=== PATIENT | female | born 1965 | race Native Hawaiian/Other Pacific Islander ===

== ENCOUNTER 2024-05-02 20:15 | Emergency (ER) | payer MEDICARE, OTHER ==
[~2024-05-02] VITALS: Ht 167.6 cm; Wt 71.0 kg
[~2024-05-02 20:15] MED LIST: AMLO-258 PO; ASCO500 PO; ASPI-556 PO; B CO1CAP4 PO; CARV6 PO; CHOL100018 PO; DSS100 PO; GLIP5TAB16 PO; LOSA-382 PO; LOVA20TA73 PO; LUBI8CAP PO; PHOSLOC PO; [UNRECOGNIZED DRUG - CODE] PO
[2024-05-02 21:01] VITALS: TEMP 97.8
[2024-05-02] MEDS ORDERED: SEVE800T38 PO (21:14)
[2024-05-02] MEDS ORDERED: FOLI-130 PO (21:14)
[2024-05-02] MEDS ORDERED: QUET25TA36 PO (21:14)
[2024-05-02 22:12] LABS: BASOPHILS % (AUTO) 1.2 % (0.0-2.0); EOSINOPHILS % (AUTO) 5.1 % (1.0-6.0); HEMATOCRIT 36.6 % (36-46); HEMOGLOBIN 11.8 g/dL (12.0-16.0); LYMPHOCYTES # (AUTO) 0.7 K/uL (1.0-4.8); LYMPHOCYTES % (AUTO) 18.4 % (22.0-44.0); MEAN CORPUSCULAR HEMOGLOBIN 29.8 pg (26.0-34.0); MEAN CORPUSCULAR HGB CONC 32.2 G/dL (31.0-37.0); MEAN CORPUSCULAR VOLUME 93 fL (80-100); MONOCYTES # (AUTO) 0.5 K/uL (0.1-1.0); MONOCYTES % (AUTO) 11.9 % (2.0-9.0); NEUTROPHILS # (AUTO) 2.5 K/uL (1.8-7.7); NEUTROPHILS % (AUTO) 63.4 % (40.0-70.0); PLATELET COUNT (AUTO) 145 K/uL (150-450); RED BLOOD CELL COUNT(AUTO) 3.95 MIL/uL (4.00-5.20); RED CELL DISTRIBUTION WIDTH 15.9 % (11.5-14.5); WHITE BLOOD COUNT (AUTO) 3.9 K/uL (4.5-11.0)
[2024-05-02 22:24] LABS: ANION GAP 15 mmol/L (8-16); CALCIUM, TOTAL 11.5 mg/dL (8.8-10.5); CARBON DIOXIDE 20 mmol/L (22-29); CHLORIDE 103 mmol/L (98-107); CREATININE 8.59 mg/dL (0.60-1.30); GLOMERULAR FILTR. RATE CALC 5 mL/min (>60); GLUCOSE,RANDOM 153 mg/dL (70-110); SODIUM SERUM 138 mmol/L (136-145); UREA NITROGEN, BLOOD 23 mg/dL (7-18)
[2024-05-02 22:26] LABS: ALCOHOL, BLOOD (SERUM) < 3 mg/dL (0-10)
[2024-05-03] MEDS: LORazepam 1 MG TABLET PO ONE (02:11)
[2024-05-03] MEDS: DiphenhydrAMINE HCL 25 MG CAPSULE PO ONE (02:11)
[2024-05-03] MEDS: OLANZapine 5 MG TABLET PO ONE (02:11)
[2024-05-03 03:19] LABS: COVID AG,FIA SOURCE NASAL SWAB
[2024-05-03 03:46] LABS: SARS-COV2 (COVID) ANTIGEN,FIA Negative (Negative)
[2024-05-03 04:00] VITALS: BP 126/78; PULSE 78; RESP 16; O2SAT 96
== END 2024-05-03 04:30 | disposition home or self-care (01) ==
LOC: EMS 20:15
DX: R45.1 Restlessness and agitation (principal); G47.00 Insomnia, unspecified; Z88.8 Allergy status to other drugs, medicaments and biological substances; Z20.822 Contact with and (suspected) exposure to COVID-19
CPT/HCPCS: 99284; 87426; 80048; 85025; 36415; G0480

== ENCOUNTER 2024-05-07 14:17 | Inpatient (IN) | payer OTHER ==
[~2024-05-07] VITALS: Ht 165.1 cm; Wt 65.5 kg
[~2024-05-07 14:17] MED LIST changes: +FOLI-130 PO; +QUET25TA36 PO; +SEVE800T38 PO
[2024-05-07 16:42] LABS: BASOPHILS % (AUTO) 0.5 % (0.0-2.0); EOSINOPHILS % (AUTO) 1.1 % (1.0-6.0); HEMATOCRIT 38.7 % (36-46); HEMOGLOBIN 12.7 g/dL (12.0-16.0); LYMPHOCYTES # (AUTO) 0.4 K/uL (1.0-4.8); LYMPHOCYTES % (AUTO) 6.5 % (22.0-44.0); MEAN CORPUSCULAR HEMOGLOBIN 29.9 pg (26.0-34.0); MEAN CORPUSCULAR HGB CONC 32.8 G/dL (31.0-37.0); MEAN CORPUSCULAR VOLUME 91 fL (80-100); MONOCYTES # (AUTO) 0.5 K/uL (0.1-1.0); MONOCYTES % (AUTO) 8.3 % (2.0-9.0); NEUTROPHILS # (AUTO) 5.3 K/uL (1.8-7.7); NEUTROPHILS % (AUTO) 83.6 % (40.0-70.0); PLATELET COUNT (AUTO) 127 K/uL (150-450); RED BLOOD CELL COUNT(AUTO) 4.25 MIL/uL (4.00-5.20); RED CELL DISTRIBUTION WIDTH 15.6 % (11.5-14.5); WHITE BLOOD COUNT (AUTO) 6.3 K/uL (4.5-11.0)
[2024-05-07 16:50] LABS: CALCIUM, TOTAL 10.1 mg/dL (8.8-10.5); CREATININE 9.06 mg/dL (0.60-1.30); POTASSIUM 3.1 mmol/L (3.5-5.1)
[2024-05-07 16:56] LABS: ALBUMIN 3.3 g/dL (3.4-5.0); BILIRUBIN,DIRECT 0.3 mg/dL (0.00-0.20); TOTAL PROTEIN, SERUM 7.4 g/dL (6.4-8.2)
[2024-05-07] MEDS ORDERED: SODIUM CHLORIDE 0.9% 100 ML ONE (17:57)
[2024-05-07] MEDS ORDERED: IOHEXOL 350 MG/ML 100 ML VIAL ONE (17:57)
[2024-05-07] MEDS: LORazepam 2 MG/ML VIAL IM ONE (21:59)
[2024-05-07] MEDS: HALOPERIDOL LACTATE 5 MG/ML VIAL IM ONE (22:00)
[2024-05-07] MEDS: PIPERACILLIN/TAZO 3.375 GM/D5W 50 ML IV ONE (22:07)
[2024-05-07] MEDS ORDERED: INSULIN LISPRO 100 UNITS/ML SQ PRN (22:30)
[2024-05-07] MEDS ORDERED: ACETAMINOPHEN 325 MG TABLET PO PRN (22:30)
[2024-05-07] MEDS: ONDANSETRON HCL 4 MG/2 ML VIAL IVP PRN (22:46)
[2024-05-07] MEDS: HYDROmorphone HCL 2 MG/ML SYRINGE IVP PRN (22:46)
[2024-05-07] MEDS: HEPARIN SODIUM,PORCINE 5,000 UNITS/ML VIAL SQ SCH (23:18)
[2024-05-07] MEDS: SODIUM CHLORIDE 0.9% 250 ML IV ONE (23:18)
[2024-05-07 23:57] LABS: LACTIC ACID 1.4 mmol/L (0.4-2.0)
[2024-05-08] VITALS (13 sets, daily range): BP systolic 104–143; BP diastolic 47–87; PULSE 61–93; RESP 16–18; TEMP 97–97.9; O2SAT 96–99
[2024-05-08] MEDS: BISACODYL 10 MG RECTAL RECTAL SUPPOSITORY PR ONE (00:38)
[2024-05-08] MEDS: POTASSIUM CHLORIDE 20 MEQ ER TABLET PO ONE ×2 (02:17→11:17)
[2024-05-08] MEDS ORDERED: PIPERACILLIN SODIUM/TAZOBACTAM 0.75 GM in DEXTROSE 5%-WATER 50 ML IV PRN (02:45)
[2024-05-08] MEDS: PIPERACILLIN SODIUM/TAZOBACTAM 2.25 GM in DEXTROSE 5%-WATER 50 ML IV SCH (05:49)
[2024-05-08 06:25] LABS: GLUCOMETER DEV NAME(LOC) 6S.2; GLUCOSE,POINT OF CARE 73 MG/DL (70-110)
[2024-05-08 07:38] LABS: BASOPHILS % (AUTO) 0.6 % (0.0-2.0); EOSINOPHILS % (AUTO) 3.5 % (1.0-6.0); HEMATOCRIT 37.3 % (36-46); HEMOGLOBIN 12.4 g/dL (12.0-16.0); LYMPHOCYTES # (AUTO) 0.6 K/uL (1.0-4.8); LYMPHOCYTES % (AUTO) 11.4 % (22.0-44.0); MEAN CORPUSCULAR HEMOGLOBIN 30.2 pg (26.0-34.0); MEAN CORPUSCULAR HGB CONC 33.1 G/dL (31.0-37.0); MEAN CORPUSCULAR VOLUME 91 fL (80-100); MONOCYTES # (AUTO) 0.7 K/uL (0.1-1.0); MONOCYTES % (AUTO) 12.5 % (2.0-9.0); NEUTROPHILS # (AUTO) 3.9 K/uL (1.8-7.7); PLATELET COUNT (AUTO) 105 K/uL (150-450); RED CELL DISTRIBUTION WIDTH 16.3 % (11.5-14.5); WHITE BLOOD COUNT (AUTO) 5.4 K/uL (4.5-11.0)
[2024-05-08 08:10] LABS: CALCIUM, TOTAL 9.4 mg/dL (8.8-10.5); CREATININE 9.75 mg/dL (0.60-1.30); POTASSIUM 3.2 mmol/L (3.5-5.1)
[2024-05-08] MEDS: ASPIRIN 81 MG DR TABLET PO SCH (09:36)
[2024-05-08] MEDS: AmLODIPine BESYLATE 10 MG TABLET PO SCH (09:36)
[2024-05-08] MEDS: DOCUSATE SODIUM 100 MG CAPSULE PO SCH (09:36)
[2024-05-08] MEDS: CALCIUM ACETATE 667 MG CAPSULE PO SCH (09:36)
[2024-05-08] MEDS: SEVELAMER CARBONATE 800 MG TABLET PO SCH (09:36)
[2024-05-08] MEDS: CARVEDILOL 6.25 MG TABLET PO SCH (09:36)
[2024-05-08] MEDS: LOSARTAN POTASSIUM 50 MG TABLET PO SCH (09:36)
[2024-05-08] MEDS: LUBIPROSTONE 8 MCG CAPSULE PO SCH (09:37)
[2024-05-08] MEDS: CHOLECALCIFEROL (VIT D3) 1,000 UNITS [25 MCG] TABLET PO SCH (09:37)
[2024-05-08] MEDS: FOLIC ACID 1 MG TABLET PO SCH (09:37)
[2024-05-08] MEDS: HydrALAZINE HCL 10 MG TABLET PO SCH (09:37)
[2024-05-08] MEDS: LOVASTATIN 20 MG TABLET PO SCH (09:49)
[2024-05-08 12:41] LABS: GLUCOMETER DEV NAME(LOC) 6S.2; GLUCOSE,POINT OF CARE 77 MG/DL (70-110)
[2024-05-08] MEDS ORDERED: SODIUM CHLORIDE 0.9% 1,000 ML ONE (13:22)
[2024-05-08] MEDS ORDERED: HEPARIN SODIUM,PORCINE 1,000 UNITS/ML VIAL IVP ONE (17:44)
[2024-05-08] MEDS ORDERED: CHOL25TA4 PO (17:52)
[2024-05-08] MEDS ORDERED: ASPI-1444 PO (17:52)
[2024-05-08] MEDS ORDERED: DOCU-385 PO (17:52)
[2024-05-08] MEDS ORDERED: FOLI0.8T54 PO (17:52)
[2024-05-08] MEDS ORDERED: HEPARIN SODIUM,PORCINE 1,000 UNITS/ML VIAL IVCATH ONE ×2 (18:00)
[2024-05-08 20:25] LABS: GLUCOMETER DEV NAME(LOC) 6S.2; GLUCOSE,POINT OF CARE 68 MG/DL (70-110)
[2024-05-08] MEDS: ASCORBIC ACID 500 MG TABLET PO SCH (20:38)
[2024-05-08] MEDS: VITAMIN B COMPLEX/FOLIC ACID 1 TABLET PO SCH (20:38)
[2024-05-08] MEDS: QUEtiapine FUMARATE 25 MG TABLET PO SCH (21:54)
[2024-05-08 22:51] LABS: GLUCOMETER DEV NAME(LOC) 6S.2; GLUCOSE,POINT OF CARE 106 MG/DL (70-110)
[2024-05-09 06:30] LABS: GLUCOMETER DEV NAME(LOC) 6S.2; GLUCOSE,POINT OF CARE 90 MG/DL (70-110)
[2024-05-09 06:45] VITALS: BP 124/66; PULSE 69; RESP 18; TEMP 98.4; O2SAT 96
[2024-05-09] MEDS: -POST HEMODIALYSIS NOTE- MISC SCH (09:00)
[2024-05-09] MEDS: POLYETHYLENE GLYCOL 3350 17 GM PACKET PO SCH (09:03)
[2024-05-09] MEDS: SENNOSIDES 8.6 MG TABLET PO ONE (13:10)
[2024-05-09 17:31] VITALS: BP 118/73; PULSE 64; RESP 19; TEMP 98; O2SAT 100
[2024-05-09] MEDS ORDERED: DEXTROSE 50%-WATER 25 GM/50 ML SYRINGE IVP PRN (18:00)
[2024-05-09] MEDS: CLINDAMYCIN 300 MG/D5% WATER 50 ML IV SCH (18:26)
[2024-05-09 21:02] VITALS: BP 120/60; PULSE 66; RESP 18; TEMP 97.7; O2SAT 100
[2024-05-09 23:30] LABS: GLUCOMETER DEV NAME(LOC) 6S.2; GLUCOSE,POINT OF CARE 116 MG/DL (70-110)
[2024-05-09 23:30] LABS: GLUCOMETER DEV NAME(LOC) 6S.2; GLUCOSE,POINT OF CARE 98 MG/DL (70-110)
[2024-05-10] VITALS (11 sets, daily range): BP systolic 105–170; BP diastolic 60–79; PULSE 60–78; RESP 16–18; TEMP 97–97.8; O2SAT 98–99
[2024-05-10 07:32] LABS: BASOPHILS % (AUTO) 0.9 % (0.0-2.0); EOSINOPHILS % (AUTO) 4.8 % (1.0-6.0); HEMATOCRIT 34.2 % (36-46); HEMOGLOBIN 11.4 g/dL (12.0-16.0); LYMPHOCYTES # (AUTO) 0.7 K/uL (1.0-4.8); MEAN CORPUSCULAR HGB CONC 33.3 G/dL (31.0-37.0); MEAN CORPUSCULAR VOLUME 90 fL (80-100); MONOCYTES # (AUTO) 0.6 K/uL (0.1-1.0); MONOCYTES % (AUTO) 12.7 % (2.0-9.0); NEUTROPHILS % (AUTO) 66.6 % (40.0-70.0); PLATELET COUNT (AUTO) 112 K/uL (150-450); RED BLOOD CELL COUNT(AUTO) 3.79 MIL/uL (4.00-5.20); RED CELL DISTRIBUTION WIDTH 15.3 % (11.5-14.5); WHITE BLOOD COUNT (AUTO) 4.5 K/uL (4.5-11.0)
[2024-05-10 07:48] LABS: CALCIUM, TOTAL 10.8 mg/dL (8.8-10.5); CREATININE 7.36 mg/dL (0.60-1.30); MAGNESIUM 2.3 mg/dL (1.80-2.40)
[2024-05-10] MEDS ORDERED: SODIUM CHLORIDE 0.9% 1,000 ML ONE (11:27)
[2024-05-10 12:10] LABS: GLUCOMETER DEV NAME(LOC) 6S.2; GLUCOSE,POINT OF CARE 83 MG/DL (70-110)
[2024-05-10 12:10] LABS: GLUCOMETER DEV NAME(LOC) 6S.2; GLUCOSE,POINT OF CARE 84 MG/DL (70-110)
[2024-05-10] MEDS: DEXTROSE 50%-WATER 25 GM/50 ML SYRINGE IVP PRN (12:43)
[2024-05-10] MEDS ORDERED: CLIN300C58 PO (13:29)
[2024-05-10 20:00] LABS: GLUCOMETER DEV NAME(LOC) 6S.2; GLUCOSE,POINT OF CARE 110 MG/DL (70-110)
== END 2024-05-10 19:50 | disposition home or self-care (01) | DRG 391 ==
LOC: EMS 14:17 → EDH 22:56 → 6S 05-08 00:04
PROVIDERS: ADMIT Internal Medicine; ATTEND Internal Medicine
PROC: 5A1D70Z Performance of Urinary Filtration, Intermittent, Less than 6 Hours Per Day (ICD-10-PCS; principal; 2024-05-08)
PROC: 5A1D70Z Performance of Urinary Filtration, Intermittent, Less than 6 Hours Per Day (ICD-10-PCS; 2024-05-10)
DX: K52.89 Other specified noninfective gastroenteritis and colitis (principal); G93.41 Metabolic encephalopathy; N18.6 End stage renal disease; K51.30 Ulcerative (chronic) rectosigmoiditis without complications; I12.0 Hypertensive chronic kidney disease with stage 5 chronic kidney disease or end stage renal disease; K86.1 Other chronic pancreatitis; D68.9 Coagulation defect, unspecified; E11.22 Type 2 diabetes mellitus with diabetic chronic kidney disease; K56.41 Fecal impaction; E87.6 Hypokalemia; R32 Unspecified urinary incontinence; E11.649 Type 2 diabetes mellitus with hypoglycemia without coma; F03.90 Unspecified dementia, unspecified severity, without behavioral disturbance, psychotic disturbance, mood disturbance, and anxiety; D69.6 Thrombocytopenia, unspecified; I95.9 Hypotension, unspecified; F17.200 Nicotine dependence, unspecified, uncomplicated; K80.20 Calculus of gallbladder without cholecystitis without obstruction; Z79.82 Long term (current) use of aspirin; Z79.84 Long term (current) use of oral hypoglycemic drugs; Z79.899 Other long term (current) drug therapy; Z99.2 Dependence on renal dialysis
CPT/HCPCS: 71045; 74177; 76705; 80048; 80076; 82962; 83605; 83690; 83735; 85025; 87081; 87340; 90935; 93005; 99291; G0378; J1170; J1630; J1644; J2060; J2405; J2543; J3490; J7030; J7050; J7060; 36415-L1; 36415-TC

== ENCOUNTER 2024-05-18 16:26 | Emergency (ER) | payer OTHER ==
[~2024-05-18] VITALS: Ht 157.5 cm; Wt 56.0 kg
[~2024-05-18 16:26] MED LIST changes: +ASPI-1444 PO; -ASPI-556 PO; -B CO1CAP4 PO; -CHOL100018 PO; +CHOL25TA4 PO; +CLIN300C58 PO; +DOCU-385 PO; -DSS100 PO; +FOLI0.8T54 PO
[2024-05-18 17:20] LABS: BASOPHILS % (AUTO) 1.2 % (0.0-2.0); EOSINOPHILS % (AUTO) 7.3 % (1.0-6.0); HEMATOCRIT 33.8 % (36-46); HEMOGLOBIN 10.8 g/dL (12.0-16.0); LYMPHOCYTES % (AUTO) 25.7 % (22.0-44.0); MEAN CORPUSCULAR HEMOGLOBIN 29.6 pg (26.0-34.0); MEAN CORPUSCULAR HGB CONC 31.9 G/dL (31.0-37.0); MEAN CORPUSCULAR VOLUME 93 fL (80-100); MONOCYTES # (AUTO) 0.4 K/uL (0.1-1.0); MONOCYTES % (AUTO) 10.9 % (2.0-9.0); NEUTROPHILS # (AUTO) 2.2 K/uL (1.8-7.7); NEUTROPHILS % (AUTO) 54.9 % (40.0-70.0); PLATELET COUNT (AUTO) 104 K/uL (150-450); RED BLOOD CELL COUNT(AUTO) 3.64 MIL/uL (4.00-5.20); RED CELL DISTRIBUTION WIDTH 16.4 % (11.5-14.5)
[2024-05-18 17:29] LABS: CREATININE 6.6 mg/dL (0.60-1.30); POTASSIUM 3.8 mmol/L (3.5-5.1)
[2024-05-18 17:35] LABS: ALBUMIN 2.8 g/dL (3.4-5.0); BILIRUBIN,TOTAL 0.5 mg/dL (0.1-1.0); TOTAL PROTEIN, SERUM 6.5 g/dL (6.4-8.2)
[2024-05-18 17:36] LABS: TROPONIN I-HIGH SENSITIVITY 9 ng/L (<51)
[2024-05-18] MEDS ORDERED: ONDA-104 PO (19:10)
[2024-05-18 19:23] VITALS: BP 119/65; PULSE 71; RESP 16; TEMP 97.3; O2SAT 100
== END 2024-05-18 22:17 | disposition home or self-care (01) ==
LOC: EMS 16:26
DX: R10.84 Generalized abdominal pain (principal); R11.0 Nausea; Z88.8 Allergy status to other drugs, medicaments and biological substances
CPT/HCPCS: 80053; 83690; 84484; 85025; 93005; 99284

== ENCOUNTER 2024-06-12 10:31 | Inpatient (IN) | payer OTHER ==
[~2024-06-12] VITALS: Ht 157.5 cm; Wt 67.9 kg
[~2024-06-12 10:31] MED LIST changes: +ONDA-104 PO
[2024-06-12 11:36] LABS: GLUCOMETER DEV NAME(LOC) ERT.6; GLUCOSE,POINT OF CARE 74 MG/DL (70-110)
[2024-06-12] MEDS ORDERED: CHOL500045 PO (11:39)
[2024-06-12] MEDS ORDERED: ATOR40TA71 PO (11:39)
[2024-06-12] MEDS ORDERED: AMLO2.5T29 PO (11:39)
[2024-06-12] MEDS ORDERED: QUET100T PO (11:39)
[2024-06-12] MEDS: SODIUM CHLORIDE 0.9% 250 ML IV ONE ×2 (11:56→12:58)
[2024-06-12 12:16] LABS: BASOPHILS % (AUTO) 1.2 % (0.0-2.0); EOSINOPHILS % (AUTO) 3.2 % (1.0-6.0); HEMATOCRIT 33.4 % (36-46); HEMOGLOBIN 10.7 g/dL (12.0-16.0); LYMPHOCYTES # (AUTO) 0.6 K/uL (1.0-4.8); LYMPHOCYTES % (AUTO) 14.3 % (22.0-44.0); MEAN CORPUSCULAR HEMOGLOBIN 30.2 pg (26.0-34.0); MEAN CORPUSCULAR HGB CONC 32.2 G/dL (31.0-37.0); MEAN CORPUSCULAR VOLUME 94 fL (80-100); MONOCYTES # (AUTO) 0.4 K/uL (0.1-1.0); NEUTROPHILS # (AUTO) 3.3 K/uL (1.8-7.7); NEUTROPHILS % (AUTO) 73.3 % (40.0-70.0); PLATELET COUNT (AUTO) 123 K/uL (150-450); RED BLOOD CELL COUNT(AUTO) 3.56 MIL/uL (4.00-5.20); RED CELL DISTRIBUTION WIDTH 17.1 % (11.5-14.5); WHITE BLOOD COUNT (AUTO) 4.5 K/uL (4.5-11.0)
[2024-06-12 12:24] LABS: ANION GAP 11 mmol/L (8-16); CALCIUM, TOTAL 8.9 mg/dL (8.8-10.5); CARBON DIOXIDE 22 mmol/L (22-29); CHLORIDE 103 mmol/L (98-107); CREATININE 4.89 mg/dL (0.60-1.30); GLOMERULAR FILTR. RATE CALC 9 mL/min (>60); GLUCOSE,RANDOM 87 mg/dL (70-110); POTASSIUM 3.6 mmol/L (3.5-5.1); SODIUM SERUM 136 mmol/L (136-145); UREA NITROGEN, BLOOD 19 mg/dL (7-18)
[2024-06-12] MEDS ORDERED: ACETAMINOPHEN 325 MG TABLET PO PRN (12:30)
[2024-06-12 12:32] LABS: TROPONIN I-HIGH SENSITIVITY 12 ng/L (<51)
[2024-06-12 12:33] LABS: LACTIC ACID 1.4 mmol/L (0.4-2.0)
[2024-06-12 12:35] LABS: B-TYPE NATRIURETIC PEPTIDE 89 pg/mL (0-100)
[2024-06-12] MEDS: LORazepam 2 MG/ML VIAL IVP ONE (13:46)
[2024-06-12] MEDS: LORazepam 2 MG/ML VIAL IM ONE (13:48)
[2024-06-12] MEDS: HALOPERIDOL LACTATE 5 MG/ML VIAL IM ONE (13:48)
[2024-06-12 16:00] VITALS: BP 130/69; PULSE 71; RESP 15; TEMP 97.6; O2SAT 100
[2024-06-12] MEDS: HEPARIN SODIUM,PORCINE 5,000 UNITS/ML VIAL SQ SCH (16:56)
[2024-06-12 17:50] VITALS: BP 132/70; PULSE 76; RESP 16; TEMP 98; O2SAT 98
[2024-06-12 20:05] LABS: GLUCOMETER DEV NAME(LOC) 5N.1D; GLUCOSE,POINT OF CARE 81 MG/DL (70-110)
[2024-06-12] MEDS: DOCUSATE SODIUM 100 MG CAPSULE PO SCH (21:00)
[2024-06-12 21:12] VITALS: BP 144/93; PULSE 99; RESP 17; TEMP 98.1; O2SAT 95
[2024-06-12] MEDS: DEXTROSE 50%-WATER 25 GM/50 ML SYRINGE IVP PRN (21:19)
[2024-06-13 00:44] VITALS: BP 125/82; PULSE 87; RESP 18; TEMP 97.8; O2SAT 100
[2024-06-13 05:49] VITALS: BP 140/80; PULSE 65; RESP 18; O2SAT 96
[2024-06-13 07:18] VITALS: BP 146/91; PULSE 69; RESP 18; TEMP 98; O2SAT 97
[2024-06-13] MEDS: ASPIRIN 81 MG CHEWABLE TABLET PO SCH (08:23)
[2024-06-13] MEDS: FAMOTIDINE 20 MG TABLET PO SCH (08:24)
[2024-06-13] MEDS: INSULIN LISPRO 100 UNITS/ML SQ PRN (11:45)
[2024-06-13 15:27] VITALS: BP 129/74; PULSE 75; RESP 18; TEMP 98; O2SAT 97
[2024-06-13] MEDS ORDERED: LORazepam 2 MG/ML VIAL ONE (16:10)
[2024-06-13] MEDS: LORazepam 2 MG/ML VIAL IVP PRN (16:27)
[2024-06-13 19:01] LABS: GLUCOMETER DEV NAME(LOC) 5S.1C; GLUCOSE,POINT OF CARE 141 MG/DL (70-110)
[2024-06-13 19:01] LABS: GLUCOMETER DEV NAME(LOC) 5S.1C; GLUCOSE,POINT OF CARE 80 MG/DL (70-110)
[2024-06-13 19:06] LABS: GLUCOMETER DEV NAME(LOC) 5N.1D; GLUCOSE,POINT OF CARE 117 MG/DL (70-110)
[2024-06-13 19:06] LABS: GLUCOMETER DEV NAME(LOC) 5N.1D; GLUCOSE,POINT OF CARE 68 MG/DL (70-110)
[2024-06-13 20:05] VITALS: BP 139/84; PULSE 82; RESP 18; TEMP 97.8; O2SAT 100
[2024-06-13 23:16] LABS: GLUCOMETER DEV NAME(LOC) 5S.1C; GLUCOSE,POINT OF CARE 142 MG/DL (70-110)
[2024-06-13 23:32] VITALS: BP 131/79; PULSE 81; RESP 17; TEMP 97.7; O2SAT 100
[2024-06-14] VITALS (13 sets, daily range): BP systolic 99–156; BP diastolic 48–77; PULSE 60–87; RESP 17–19; TEMP 97–98; O2SAT 92–100
[2024-06-14 06:30] LABS: GLUCOMETER DEV NAME(LOC) 5S.1C; GLUCOSE,POINT OF CARE 94 MG/DL (70-110)
[2024-06-14 22:26] LABS: GLUCOMETER DEV NAME(LOC) 5S.1C; GLUCOSE,POINT OF CARE 100 MG/DL (70-110)
[2024-06-14] MEDS ORDERED: SODIUM CHLORIDE 0.9% 2,000 ML ONE (23:03)
[2024-06-14] MEDS ORDERED: HEPARIN SODIUM,PORCINE 1,000 UNITS/ML VIAL IVCATH ONE ×2 (23:15)
[2024-06-15] VITALS: BP 97/54; PULSE 67; RESP 17; O2SAT 96
[2024-06-15 04:54] VITALS: BP 134/71; PULSE 99; RESP 19; TEMP 97.9; O2SAT 95
[2024-06-15 06:01] LABS: GLUCOMETER DEV NAME(LOC) 5S.1C; GLUCOSE,POINT OF CARE 104 MG/DL (70-110)
[2024-06-15 07:31] VITALS: BP 110/68; PULSE 84; RESP 18; TEMP 98; O2SAT 99
[2024-06-15 11:37] LABS: GLUCOMETER DEV NAME(LOC) 5N.2C; GLUCOSE,POINT OF CARE 116 MG/DL (70-110)
[2024-06-15] MEDS ORDERED: MIDODRINE HCL 5 MG TABLET PO PRN (12:45)
[2024-06-15] MEDS ORDERED: ONDANSETRON 4 MG TABLET PO PRN (12:45)
[2024-06-15 13:09] LABS: HEMATOCRIT 35.1 % (36-46); HEMOGLOBIN 11.5 g/dL (12.0-16.0); MEAN CORPUSCULAR HEMOGLOBIN 30.8 pg (26.0-34.0); MEAN CORPUSCULAR HGB CONC 32.9 G/dL (31.0-37.0); MEAN CORPUSCULAR VOLUME 94 fL (80-100); PLATELET COUNT (AUTO) 155 K/uL (150-450); RED BLOOD CELL COUNT(AUTO) 3.75 MIL/uL (4.00-5.20); RED CELL DISTRIBUTION WIDTH 17.9 % (11.5-14.5); WHITE BLOOD COUNT (AUTO) 3.1 K/uL (4.5-11.0)
[2024-06-15 13:29] LABS: BAND NEUTROPHILS % (MANUAL) 1 % (0-5); BASOPHILS % (MANUAL) 1 % (0-2); EOSINOPHILS % (MANUAL) 5 % (1-6); LYMPHOCYTES % (MANUAL) 27 % (22-44); MONOCYTES % (MANUAL) 8 % (2-9); SEGMENTED NEUTROPHILS % 58 % (40-70); TOTAL CELLS COUNTED 100
[2024-06-15 13:33] LABS: ALBUMIN 2.8 g/dL (3.4-5.0); BILIRUBIN,TOTAL 0.6 mg/dL (0.1-1.0); CALCIUM, TOTAL 9.2 mg/dL (8.8-10.5); CREATININE 5.37 mg/dL (0.60-1.30); POTASSIUM 3.5 mmol/L (3.5-5.1); TOTAL PROTEIN, SERUM 7.1 g/dL (6.4-8.2)
[2024-06-15] MEDS ORDERED: LINA5TAB PO (13:57)
[2024-06-15 17:36] LABS: GLUCOMETER DEV NAME(LOC) 5S.1C; GLUCOSE,POINT OF CARE 120 MG/DL (70-110)
[2024-06-15] MEDS ORDERED: LUBIPROSTONE 8 MCG CAPSULE PO SCH (18:00)
[2024-06-15] MEDS ORDERED: CALCIUM ACETATE 667 MG CAPSULE PO SCH (18:00)
[2024-06-15] MEDS ORDERED: SEVELAMER CARBONATE 800 MG TABLET PO SCH (18:00)
[2024-06-15] MEDS ORDERED: ATORVASTATIN CALCIUM 40 MG TABLET PO SCH (21:00)
[2024-06-15] MEDS ORDERED: DOCUSATE SODIUM 100 MG CAPSULE PO SCH (21:00)
[2024-06-15] MEDS ORDERED: QUEtiapine FUMARATE 100 MG TABLET PO SCH (21:00)
[2024-06-15] MEDS ORDERED: ASCORBIC ACID 500 MG TABLET PO SCH (21:00)
[2024-06-16] MEDS ORDERED: FOLIC ACID 1 MG TABLET PO SCH (09:00)
[2024-06-16] MEDS ORDERED: ASPIRIN 81 MG DR TABLET PO SCH (09:00)
[2024-06-16] MEDS ORDERED: QUEtiapine FUMARATE 25 MG TABLET PO SCH (09:00)
[2024-06-16] MEDS ORDERED: FOLIC ACID/VIT B COMPLEX AND C TABLET PO SCH (09:00)
== END 2024-06-15 14:40 | disposition home or self-care (01) | DRG 312 ==
LOC: EMS 10:31 → EDH 12:19 → 5N 16:11
PROVIDERS: ADMIT Internal Medicine; ATTEND Internal Medicine
PROC: GZ56ZZZ Individual Psychotherapy, Supportive (ICD-10-PCS; principal; 2024-06-14)
PROC: 5A1D70Z Performance of Urinary Filtration, Intermittent, Less than 6 Hours Per Day (ICD-10-PCS; 2024-06-14)
DX: I95.3 Hypotension of hemodialysis (principal); N18.6 End stage renal disease; G93.41 Metabolic encephalopathy; I12.0 Hypertensive chronic kidney disease with stage 5 chronic kidney disease or end stage renal disease; K86.1 Other chronic pancreatitis; F03.918 Unspecified dementia, unspecified severity, with other behavioral disturbance; E11.22 Type 2 diabetes mellitus with diabetic chronic kidney disease; D69.6 Thrombocytopenia, unspecified; D64.9 Anemia, unspecified; E87.8 Other disorders of electrolyte and fluid balance, not elsewhere classified; F91.9 Conduct disorder, unspecified; Z99.2 Dependence on renal dialysis; Z79.82 Long term (current) use of aspirin; Z79.84 Long term (current) use of oral hypoglycemic drugs; Z79.899 Other long term (current) drug therapy; Z88.8 Allergy status to other drugs, medicaments and biological substances
CPT/HCPCS: 71045; 80048; 80053; 82962; 83605; 83880; 84484; 85025; 87040; 87340; 90935; 93005; 97162; 97166; 97530; 97535; 99285; J1630; J1644; J2060; J7030; J7040; 36415-L1; 36415-TC

== ENCOUNTER 2024-10-24 04:46 | Inpatient (IN) | payer OTHER ==
[~2024-10-24] VITALS: Ht 154.9 cm; Wt 79.4 kg
[~2024-10-24 04:46] MED LIST changes: -AMLO-258 PO; +ATOR40TA71 PO; -CARV6 PO; -CHOL25TA4 PO; +CHOL500045 PO; -CLIN300C58 PO; -GLIP5TAB16 PO; +LINA5TAB PO; -LOSA-382 PO; -LOVA20TA73 PO; +QUET100T PO
[2024-10-24 05:40] LABS: COVID AG,FIA SOURCE NASAL SWAB
[2024-10-24 05:43] LABS: BASOPHILS % (AUTO) 1.6 % (0.0-2.0); EOSINOPHILS % (AUTO) 5.2 % (1.0-6.0); HEMATOCRIT 32.4 % (36-46); HEMOGLOBIN 10.6 g/dL (12.0-16.0); LYMPHOCYTES # (AUTO) 0.4 K/uL (1.0-4.8); MEAN CORPUSCULAR HEMOGLOBIN 31.2 pg (26.0-34.0); MEAN CORPUSCULAR HGB CONC 32.8 G/dL (31.0-37.0); MEAN CORPUSCULAR VOLUME 95 fL (80-100); MONOCYTES # (AUTO) 0.3 K/uL (0.1-1.0); MONOCYTES % (AUTO) 8.5 % (2.0-9.0); NEUTROPHILS # (AUTO) 2.7 K/uL (1.8-7.7); NEUTROPHILS % (AUTO) 73.7 % (40.0-70.0); PLATELET COUNT (AUTO) 141 K/uL (150-450); RED CELL DISTRIBUTION WIDTH 18.4 % (11.5-14.5); WHITE BLOOD COUNT (AUTO) 3.7 K/uL (4.5-11.0)
[2024-10-24 06:00] LABS: SARS-COV2 (COVID) ANTIGEN,FIA Negative (Negative)
[2024-10-24 06:13] LABS: ALCOHOL, BLOOD (SERUM) < 3 mg/dL (0-10); ANION GAP 11 mmol/L (8-16); CALCIUM, TOTAL 9.6 mg/dL (8.8-10.5); CARBON DIOXIDE 24 mmol/L (22-29); CHLORIDE 104 mmol/L (98-107); CREATININE 8.96 mg/dL (0.60-1.30); GLOMERULAR FILTR. RATE CALC 5 mL/min (>60); GLUCOSE,RANDOM 80 mg/dL (70-110); POTASSIUM 5.1 mmol/L (3.5-5.1); SODIUM SERUM 139 mmol/L (136-145); UREA NITROGEN, BLOOD 36 mg/dL (7-18)
[2024-10-24 11:00] VITALS: BP 166/43; PULSE 67; RESP 16; TEMP 97.6; O2SAT 100
[2024-10-24 19:33] VITALS: BP 164/75; PULSE 68; RESP 18; TEMP 97.7; O2SAT 100
[2024-10-25] VITALS (12 sets, daily range): BP systolic 115–168; BP diastolic 62–110; PULSE 67–101; RESP 18; TEMP 97.7–98; O2SAT 96–100
[2024-10-25] MEDS ORDERED: ONDANSETRON 4 MG TABLET PO PRN (07:00)
[2024-10-25] MEDS: FOLIC ACID/VIT B COMPLEX AND C TABLET PO SCH (08:33)
[2024-10-25] MEDS: LinaGLIPtin 5 MG TABLET PO SCH (08:34)
[2024-10-25] MEDS: CHOLECALCIFEROL (VIT D3) 5,000 [125 MCG] UNITS CAPSULE PO SCH (08:34)
[2024-10-25] MEDS: FOLIC ACID 1 MG TABLET PO SCH (08:34)
[2024-10-25] MEDS: ASPIRIN 81 MG DR TABLET PO SCH (08:34)
[2024-10-25] MEDS: DOCUSATE SODIUM 100 MG CAPSULE PO SCH (08:34)
[2024-10-25] MEDS: SEVELAMER CARBONATE 800 MG TABLET PO SCH (08:35)
[2024-10-25] MEDS: LUBIPROSTONE 8 MCG CAPSULE PO SCH (08:35)
[2024-10-25] MEDS: CALCIUM ACETATE 667 MG CAPSULE PO SCH (08:38)
[2024-10-25 08:41] LABS: GLUCOMETER DEV NAME(LOC) 6S.1D; GLUCOSE,POINT OF CARE 79 MG/DL (70-110)
[2024-10-25] MEDS ORDERED: SODIUM CHLORIDE 0.9% 1,000 ML ONE ×2 (08:59→09:00)
[2024-10-25] MEDS: HydrALAZINE HCL 10 MG TABLET PO SCH (09:00)
[2024-10-25] MEDS: QUEtiapine FUMARATE 100 MG TABLET PO SCH (13:42)
[2024-10-25] MEDS: HEPARIN SODIUM,PORCINE 1,000 UNITS/ML VIAL IVP PRN ×2 (13:48→13:49)
[2024-10-25] MEDS: QUEtiapine FUMARATE 25 MG TABLET PO SCH (13:59)
[2024-10-25] MEDS: ATORVASTATIN CALCIUM 40 MG TABLET PO SCH (21:00)
[2024-10-25] MEDS: ASCORBIC ACID 500 MG TABLET PO SCH (21:00)
[2024-10-26 03:14] VITALS: BP 131/62; PULSE 76; RESP 18; TEMP 98.5; O2SAT 99
[2024-10-26 07:56] LABS: GLUCOMETER DEV NAME(LOC) 6S.2; GLUCOSE,POINT OF CARE 84 MG/DL (70-110)
[2024-10-26 08:08] VITALS: BP 130/80; PULSE 70; RESP 18; TEMP 98.5; O2SAT 98
[2024-10-26 11:48] VITALS: BP 152/84; PULSE 72; RESP 18; TEMP 97.8; O2SAT 98
[2024-10-26 15:33] VITALS: BP 112/66; PULSE 76; RESP 18; TEMP 98.2; O2SAT 98
[2024-10-26 20:00] VITALS: BP 150/84; PULSE 76; RESP 18; TEMP 98; O2SAT 98
[2024-10-27] VITALS (13 sets, daily range): BP systolic 106–176; BP diastolic 59–92; PULSE 50–90; RESP 1–18; TEMP 97.2–98.4; O2SAT 97–100
[2024-10-27] MEDS ORDERED: SODIUM CHLORIDE 0.9% 2,000 ML ONE (08:55)
[2024-10-27] MEDS ORDERED: HEPARIN SODIUM,PORCINE 1,000 UNITS/ML VIAL IVP ONE (12:00)
[2024-10-27] MEDS: LORazepam 1 MG TABLET PO PRN (17:31)
[2024-10-27] MEDS ORDERED: LORA-192 PO (17:32)
== END 2024-10-27 21:12 | disposition home or self-care (01) | DRG 808 ==
LOC: EMS 04:47 → EDH 10:34 → 6S 11:06
PROVIDERS: ADMIT Hospitalist; ATTEND Hospitalist
PROC: 5A1D70Z Performance of Urinary Filtration, Intermittent, Less than 6 Hours Per Day (ICD-10-PCS; principal; 2024-10-25)
PROC: 5A1D70Z Performance of Urinary Filtration, Intermittent, Less than 6 Hours Per Day (ICD-10-PCS; 2024-10-27)
DX: D61.818 Other pancytopenia (principal); N18.6 End stage renal disease; I12.0 Hypertensive chronic kidney disease with stage 5 chronic kidney disease or end stage renal disease; E11.22 Type 2 diabetes mellitus with diabetic chronic kidney disease; Z20.822 Contact with and (suspected) exposure to COVID-19; F03.90 Unspecified dementia, unspecified severity, without behavioral disturbance, psychotic disturbance, mood disturbance, and anxiety; N25.0 Renal osteodystrophy; F20.9 Schizophrenia, unspecified; E78.5 Hyperlipidemia, unspecified; Z99.2 Dependence on renal dialysis; Z88.8 Allergy status to other drugs, medicaments and biological substances
CPT/HCPCS: 80048; 82962; 85025; 87081; 87340; 90935; 96374; 96375; 99285; G0480; J1644; J7030

== ENCOUNTER 2024-11-20 23:56 | Emergency (ER) | payer OTHER ==
[~2024-11-20 23:56] MED LIST changes: +LORA-192 PO
== END 2024-11-20 23:59 | disposition left against medical advice (07) ==
LOC: EMS 23:59 → 3EC 11-21 00:03 → UNDOADMIN 11-21 00:03
DX: F03.90 Unspecified dementia, unspecified severity, without behavioral disturbance, psychotic disturbance, mood disturbance, and anxiety (principal); R03.0 Elevated blood-pressure reading, without diagnosis of hypertension; R11.0 Nausea; D64.9 Anemia, unspecified; E78.5 Hyperlipidemia, unspecified; Z53.21 Procedure and treatment not carried out due to patient leaving prior to being seen by health care provider

== ENCOUNTER 2024-12-26 16:26 | Inpatient (IN) | payer OTHER ==
[~2024-12-26] VITALS: Ht 172.7 cm; Wt 72.1 kg
[~2024-12-26 16:26] MED LIST changes: -ATOR40TA71 PO; -CHOL500045 PO; +DIVA125C20 PO; -DOCU-385 PO; -FOLI0.8T54 PO; -LINA5TAB PO; -LORA-192 PO; -ONDA-104 PO; -PHOSLOC PO; -QUET100T PO; -[UNRECOGNIZED DRUG - CODE] PO
[2024-12-26 18:14] LABS: BASOPHILS % (AUTO) 1.3 % (0.0-2.0); HEMATOCRIT 42.9 % (36-46); HEMOGLOBIN 13.7 g/dL (12.0-16.0); LYMPHOCYTES # (AUTO) 0.8 K/uL (1.0-4.8); LYMPHOCYTES % (AUTO) 21.1 % (22.0-44.0); MEAN CORPUSCULAR HEMOGLOBIN 32.1 pg (26.0-34.0); MEAN CORPUSCULAR VOLUME 100 fL (80-100); MONOCYTES # (AUTO) 0.7 K/uL (0.1-1.0); MONOCYTES % (AUTO) 17.3 % (2.0-9.0); NEUTROPHILS # (AUTO) 1.8 K/uL (1.8-7.7); NEUTROPHILS % (AUTO) 47.3 % (40.0-70.0); PLATELET COUNT (AUTO) 106 K/uL (150-450); RED BLOOD CELL COUNT(AUTO) 4.29 MIL/uL (4.00-5.20); RED CELL DISTRIBUTION WIDTH 16.4 % (11.5-14.5); WHITE BLOOD COUNT (AUTO) 3.8 K/uL (4.5-11.0)
[2024-12-26 18:23] LABS: ANION GAP 10 mmol/L (8-16); CARBON DIOXIDE 25 mmol/L (22-29); CHLORIDE 102 mmol/L (98-107); CREATININE 10.34 mg/dL (0.60-1.30); GLOMERULAR FILTR. RATE CALC 4 mL/min (>60); GLUCOSE,RANDOM 87 mg/dL (70-110); POTASSIUM 5.4 mmol/L (3.5-5.1); SODIUM SERUM 137 mmol/L (136-145); UREA NITROGEN, BLOOD 63 mg/dL (7-18)
[2024-12-26 18:29] LABS: CREATINE KINASE, TOTAL ONLY 24 U/L (26-192)
[2024-12-26 18:31] LABS: B-TYPE NATRIURETIC PEPTIDE 210 pg/mL (0-100); TROPONIN I-HIGH SENSITIVITY 9 ng/L (<51)
[2024-12-26 19:18] LABS: RBC MORPHOLOGY COMMENT ABNORMAL RBC MORPH
[2024-12-26] MEDS ORDERED: MORPHINE SULFATE 2 MG/ML SYRINGE IVP PRN (22:45)
[2024-12-26] MEDS ORDERED: ALBUTEROL SULFATE 2.5 MG/0.5 ML NEB SOLUTION NEB PRN (22:45)
[2024-12-26] MEDS ORDERED: ACETAMINOPHEN 325 MG TABLET PO PRN (22:45)
[2024-12-26] MEDS ORDERED: IPRATROPIUM BROMIDE 0.5 MG/2.5 ML NEB SOLUTION NEB PRN (22:45)
[2024-12-26] MEDS ORDERED: HYDROCODONE/ACETAMINOPHEN 5-325 MG TABLET PO PRN (22:45)
[2024-12-26] MEDS ORDERED: MAGNESIUM HYDROXIDE SUSPENSION 30 ML UDCUP PO PRN (22:45)
[2024-12-26] MEDS ORDERED: BISACODYL 10 MG RECTAL RECTAL SUPPOSITORY PR PRN (22:45)
[2024-12-26] MEDS ORDERED: ZOLPIDEM TARTRATE 5 MG TABLET PO PRN (22:45)
[2024-12-26] MEDS ORDERED: ONDANSETRON HCL 4 MG/2 ML VIAL IVP PRN (22:45)
[2024-12-26] MEDS: HEPARIN SODIUM,PORCINE 5,000 UNITS/ML VIAL SQ SCH (23:23)
[2024-12-27] VITALS (13 sets, daily range): BP systolic 104–158; BP diastolic 35–66; PULSE 54–70; RESP 16–19; TEMP 97.3–98.2; O2SAT 100
[2024-12-27] MEDS: SEVELAMER CARBONATE 800 MG TABLET PO SCH (08:00)
[2024-12-27] MEDS: LUBIPROSTONE 8 MCG CAPSULE PO SCH (08:00)
[2024-12-27] MEDS: PANTOPRAZOLE SODIUM 40 MG DR TABLET PO SCH (08:38)
[2024-12-27] MEDS: ASPIRIN 81 MG DR TABLET PO SCH (08:38)
[2024-12-27] MEDS: FOLIC ACID 1 MG TABLET PO SCH (08:38)
[2024-12-27] MEDS: DIVALPROEX SODIUM 125 MG DR CAPSULE PO SCH (08:38)
[2024-12-27 09:51] LABS: CALCIUM, TOTAL 11.3 mg/dL (8.8-10.5); CREATININE 10.93 mg/dL (0.60-1.30); POTASSIUM 5.4 mmol/L (3.5-5.1)
[2024-12-27] MEDS ORDERED: QUEtiapine FUMARATE 25 MG TABLET PO SCH (21:00)
[2024-12-27] MEDS ORDERED: DIVALPROEX SODIUM 125 MG DR CAPSULE PO SCH (21:00)
[2024-12-27] MEDS ORDERED: ASCORBIC ACID 500 MG TABLET PO SCH (21:00)
== END 2024-12-27 20:22 | disposition home or self-care (01) | DRG 640 ==
LOC: EMS 16:26 → EDH 22:42 → 5S 12-27 02:03
PROVIDERS: ADMIT Hospitalist; ATTEND Hospitalist
PROC: 5A1D70Z Performance of Urinary Filtration, Intermittent, Less than 6 Hours Per Day (ICD-10-PCS; principal; 2024-12-27)
DX: E87.5 Hyperkalemia (principal); N18.6 End stage renal disease; E11.22 Type 2 diabetes mellitus with diabetic chronic kidney disease; E78.5 Hyperlipidemia, unspecified; E87.70 Fluid overload, unspecified; F03.90 Unspecified dementia, unspecified severity, without behavioral disturbance, psychotic disturbance, mood disturbance, and anxiety; Z99.2 Dependence on renal dialysis
CPT/HCPCS: 71045; 80048; 82550; 83880; 84484; 85025; 87081; 90935; 93005; 97163; 97530; 99285; G0378; J1644; 36415-L1; 36415-TC